=== PATIENT | male | born 1975 | race Caucasian/White ===

== ENCOUNTER 2017-01-08 11:00 | Emergency (ER) | payer MEDICAID ==
[~2017-01-08] VITALS: Ht 175.3 cm; Wt 95.0 kg
[2017-01-08 11:01] VITALS: BP 146/95; PULSE 68; RESP 18; TEMP 97.9; O2SAT 98
[2017-01-08] MEDS ORDERED: METO50TA PO (11:19)
[2017-01-08] MEDS ORDERED: SODIUM CHLORIDE 0.9% FLUSH 10 ML FLUSH IVF PRN (11:45)
[2017-01-08 12:20] VITALS: RESP 17; O2SAT 96
--- NOTE | 2017-01-08 12:20 | RADRPT ---
EXAM DATE/TIME: 01/08/2017 12:00 [facility] COMPARISON: No previous studies available for comparison. INDICATIONS : Increasing dizzy spells for the last year. RADIATION DOSE: 56.37 CTDIvol (mGy) MEDICAL HISTORY : Hypertension. SURGICAL HISTORY : Hand surgery ENCOUNTER: Initial ACUITY: 1 yr PAIN SCALE: 0/10 LOCATION: cranial TECHNIQUE: Multiple contiguous axial images were obtained of the head. Using automated exposure control and adj ustment of the mA and/or kV according to patient size, radiation dose was kept as low as reasonably a chievable to obtain optimal diagnostic quality images. FINDINGS: CEREBRUM: The ventricles are normal for age. No evidence of midline shift, mass lesion, hemorrhage or acute in farction. No extra-axial fluid collections are seen. POSTERIOR FOSSA: The cerebellum and brainstem are intact. The 4th ventricle is midline. The cerebellopontine angle i s unremarkable. EXTRACRANIAL: The visualized portion of the orbits is intact. SKULL: The calvaria is intact. No evidence of skull fracture. CONCLUSION: No acute intracranial disease. Grzegorz Amezcua MD on January 08, 2017 at 12:17 Board Certified Radiologist. This report was verified electronically.
--- NOTE | 2017-01-08 12:22 | RADRPT ---
EXAM DATE/TIME: 01/08/2017 11:40 [facility] COMPARISON: No previous studies available for comparison. INDICATIONS : Syncope, dizziness. MEDICAL HISTORY : None. SURGICAL HISTORY : None. ENCOUNTER: Initial ACUITY: 1 day PAIN SCORE: 0/10 LOCATION: Left chest FINDINGS: Single AP view of the chest. The lungs are clear. Cardiomediastinal silhouette within normal limits. No evidence of pleural effusion or pneumothorax. CONCLUSION: No acute cardiopulmonary disease identified. Jose David Wilkins MD on January 08, 2017 at 12:19 Board Certified Radiologist. This report was verified electronically.
[2017-01-08 12:32] LABS: AUTOMATED NEUTROPHIL # 9.7 TH/MM3 (1.8-7.7); BASOPHIL # 0.1 TH/MM3 (0-0.2); BASOPHIL % 0.5 % (0.0-2.0); EOSINOPHIL % 0.2 % (0.0-4.0); HEMATOCRIT 47.3 % (39.0-51.0); HEMO FLAGS DIFF FINAL; LYMPH % 11.7 % (9.0-44.0); LYMPHOCYTE # 1.4 TH/MM3 (1.0-4.8); MEAN CELL VOLUME 86.5 FL (80.0-100.0); MEAN CORPUSCULAR HGB CONC 33.6 % (32.0-36.0); MONO % 3.9 % (0.0-8.0); NEUT % 83.7 % (16.0-70.0); PLATELET COUNT 190 TH/MM3 (150-450); RED BLOOD COUNT 5.47 MIL/MM3 (4.50-5.90); RED CELL DISTRIBUTION WIDTH 13.8 % (11.6-17.2); WHITE BLOOD COUNT 11.6 TH/MM3 (4.0-11.0)
[2017-01-08] MEDS ORDERED: SODIUM CHLOR 0.9% 1000 ML INJ 1,000 ML IV ONE (12:45)
[2017-01-08 12:55] LABS: ANION GAP 6 MEQ/L (5-15); BICARBONATE 28.9 MEQ/L (21.0-32.0); BLOOD UREA NITROGEN 10 MG/DL (7-18); CHLORIDE 103 MEQ/L (98-107); GLOMERULAR FILTRATION RATE 64 ML/MIN (>89); POTASSIUM 4.5 MEQ/L (3.5-5.1); SODIUM (NA) 138 MEQ/L (136-145)
[2017-01-08 14:11] VITALS: BP 138/97; PULSE 74; RESP 12; O2SAT 98
--- NOTE | 2017-01-08 15:06 | PD ---
HPI Chief Complaint: Dizziness Time Seen by Provider: 11:16 Travel History International Travel<30 days: No Contact w/Intl Traveler<30days: No Traveled to known affect area: No History of Present Illness HPI 41-year-old male came to the emergency room with history of dizziness which as per his description is really lightheadedness. As he gets these episodes on and off and has been going on for almost a year now. He has been worked up from cardiac standpoint and was told that these are related to PVCs. He has been on metoprolol for past 3 months. However he continues to get these episodes. It's getting more frequent now. The one that happened today while he was driving to work was the worse up until now. Says he got really lightheaded and started feeling nauseous. 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 It got little less but continued and he managed to drive somehow to work. When he went to his office his coworkers told him that he looked very pale. He called his to come and pick him up. He is at that point the dizziness had subsided. His decided to bring him to the emergency room and on his way to the ER it started again. Patient says currently the feeling has subsided again. His vital signs are relatively stable. He otherwise does not look to be in any distress. [facility] Past Medical History Narrative Medical List of his past medical, surgical, social and family history was reviewed from the nursing note. Heart Rhythm Problems: Yes (PVC) Hypertension: Yes Influenza Vaccination: No Past Surgical History Other Surgery: Yes (left hand surgery) Social History Alcohol Use: Yes (occasionally) Tobacco Use: No Substance Use: No Allergies-Medications (Allergen,Severity, Reaction): Coded Allergies: No Known Allergies (Unverified , 01/08/17) Comments No known drug allergies. Reported Meds & Prescriptions Reported Meds & Active Scripts Active Reported Metoprolol Tartrate 50 Mg Tab 50 Mg PO BID Narrative Medication List of his home medications reviewed from the nursing note. Review of Systems Except as stated in HPI: all other systems reviewed are Neg Physical Exam Narrative GENERAL: Awake, alert, anxious, no obvious distress SKIN: Focused skin assessment warm/dry. HEAD: Atraumatic. Normocephalic. EYES: Pupils equal and round. No scleral icterus. No injection or drainage. ENT: No nasal bleeding or discharge. Mucous membranes pink and moist. NECK: Trachea midline. No JVD. CARDIOVASCULAR: Regular rate and rhythm. No murmur appreciated. RESPIRATORY: No accessory muscle use. Clear to auscultation. Breath sounds equal bilaterally. GASTROINTESTINAL: Abdomen soft, non-tender, nondistended. Hepatic and splenic margins not palpable. MUSCULOSKELETAL: No obvious deformities. No clubbing. No cyanosis. No edema. NEUROLOGICAL: Awake and alert. No obvious cranial nerve deficits. Motor grossly within normal limits. Normal speech. PSYCHIATRIC: Appropriate mood and affect; insight and judgment normal. Data Data Last Documented VS Vital Signs Date Time Temp Pulse Resp B/P Pulse Ox O2 Delivery O2 Flow Rate FiO2 01/08/17 14:11 74 12 138/97 98 01/08/17 12:20 Room Air 01/08/17 11:01 97.9 Orders Electrocardiogram (01/08/17 11:40) Complete Blood Count With Diff (01/08/17 11:40) Basic Metabolic Panel (Bmp) (01/08/17 11:40) Troponin I (01/08/17 11:40) Ct Brain W/O Iv Contrast(Rout) (01/08/17 11:40) Chest, Single Ap (01/08/17 11:40) Ecg Monitoring (01/08/17 11:40) Iv Access Insert/Monitor (01/08/17 11:40) Oximetry (01/08/17 11:40) Sodium Chloride 0.9% Flush (Ns Flush) (01/08/17 11:45) Mri Brain W&W/O Contrast (01/08/17 ) Mra Brain W/O Contrast (Cow) (01/08/17 ) Sodium Chlor 0.9% 1000 Ml Inj (Ns 1000 M (01/08/17 12:45) Gadodiamide Pf Inj (Omniscan Pf Inj) (01/08/17 16:14) Labs Laboratory Tests Test 01/08/17 12:15 White Blood Count 11.6 TH/MM3 Red Blood Count 5.47 MIL/MM3 Hemoglobin 15.9 GM/DL Hematocrit 47.3 % Mean Corpuscular Volume 86.5 FL Mean Corpuscular Hemoglobin 29.0 PG Mean Corpuscular Hemoglobin 33.6 % Concent Red Cell Distribution Width 13.8 % Platelet Count 190 TH/MM3 Mean Platelet Volume 8.4 FL Neutrophils (%) (Auto) 83.7 % Lymphocytes (%) (Auto) 11.7 % Monocytes (%) (Auto) 3.9 % Eosinophils (%) (Auto) 0.2 % Basophils (%) (Auto) 0.5 % Neutrophils # (Auto) 9.7 TH/MM3 Lymphocytes # (Auto) 1.4 TH/MM3 Monocytes # (Auto) 0.5 TH/MM3 Eosinophils # (Auto) 0.0 TH/MM3 Basophils # (Auto) 0.1 TH/MM3 CBC Comment DIFF FINAL Differential Comment Sodium Level 138 MEQ/L Potassium Level 4.5 MEQ/L Chloride Level 103 MEQ/L Carbon Dioxide Level 28.9 MEQ/L Anion Gap 6 MEQ/L Blood Urea Nitrogen 10 MG/DL Creatinine 1.23 MG/DL Estimat Glomerular Filtration 64 ML/MIN Rate Random Glucose 114 MG/DL Calcium Level 9.3 MG/DL Troponin I LESS THAN 0.02 NG/ML MDM Medical Decision Making Medical Screen Exam Complete: Yes Emergency Medical Condition: Yes Medical Record Reviewed: Yes Interpretation(s) Twelve-lead EKG was reviewed by me. Normal sinus rhythm, normal axis, multiple PVCs, nonspecific ST-T wave changes. Heart rate of 71 bpm. Differential Diagnosis Cardiac arrhythmia, seizures, electrolyte abnormality, TIA Narrative Course 3:05 PM blood test results and CAT scan of the head is back and within normal limit. Currently awaiting for the MRI. He assessed him a little while ago and patient said he has had few other very brief episodes lasting for a few seconds. Nothing was caught on the cardiac catheterization technician as per the nurse. 4:31 PM the MRI report is back and within normal limit. I'll discharge the patient home at this point with instructions. Procedures EKG Prior to Arrival: No Diagnosis Primary Impression: Near syncope Additional Impression: Symptomatic PVCs Referrals: Primary Care Physician 2 days Departure Forms: Tests/Procedures, Work Release Enter return to work date: January 11, 2017 Additional Instructions: Please return to the ER if the condition worsens or any other new concerns. Please follow-up with your primary care. You primary care should refer you to a sole leather cutting machine operator. He should not be driving until you get clearance from the sole leather cutting machine operator. Stay away from coffee, caffeinated beverages, alcohol, cigarettes or any [id number] sinus, cold medications. Med/Other Pt SpecificInfo: No Change to Meds Disposition: 01 DISCHARGE HOME Condition: Stable Dimitry Valera MD January 08, 2017 15:06
[2017-01-08] MEDS ORDERED: GADODIAMIDE PF 287 MG/ML 20 ML VIAL (for RAD MRI) IV ONE (16:14)
--- NOTE | 2017-01-08 16:25 | RADRPT ---
EXAM DATE/TIME: 01/08/2017 15:28 [facility] COMPARISON: No previous studies available for comparison. INDICATIONS : Dizziness. CONTRAST: 19 cc Omniscan (gadodiamide) IV MEDICAL HISTORY : Hypertension. PVC. SURGICAL HISTORY : Left hand. ENCOUNTER: Subsequent ACUITY: 1 day PAIN SCORE: 0/10 LOCATION: cranial TECHNIQUE: Multiplanar, multisequence MRI of the brain was performed both prior to and following the administrat ion of paramagnetic contrast. FINDINGS: CEREBRUM: The ventricles are normal for age. No evidence of midline shift, mass lesion, hemorrhage or acute in farction. No extraaxial fluid collections are seen. The pituitary gland and suprasellar cistern are normal in configuration. WHITE MATTER: No significant signal abnormalities are seen in the white matter. POSTERIOR FOSSA: The cerebellum and brainstem are intact. The 4th ventricle is midline. The cerebellopontine angle is unremarkable. The cerebellar tonsils are normal in position. DIFFUSION IMAGING: No focal areas of restricted diffusion are seen. No evidence of acute infarction. EXTRACRANIAL: The visualized portions of the orbits and paranasal sinuses are unremarkable. POST-CONTRAST: No abnormal areas of parenchymal or dural enhancement. No evidence of blood-brain barrier breakdown. CONCLUSION: Normal examination. Gustavo Gao MD on January 08, 2017 at 16:21 Board Certified Radiologist. This report was verified electronically.
--- NOTE | 2017-01-08 16:26 | RADRPT ---
EXAM DATE/TIME: 01/08/2017 15:28 [facility] COMPARISON: No previous studies available for comparison. INDICATIONS : Dizziness. MEDICAL HISTORY : Hypertension. PVC. SURGICAL HISTORY : Left hand. ENCOUNTER: Subsequent ACUITY: 1 day PAIN SCORE: 0/10 LOCATION: cranial Please note a normal MRA of the brain does not entirely exclude the possibility of a small aneurysm, nor the possibility of distal intracranial vessel disease. TECHNIQUE: 3D time of flight MRA was performed. Source images, multiplanar STS MIP, and 3D volume MIP reconstru ctions were reviewed. FINDINGS: There is excellent visualization of the major intracranial arteries out to the second-order branch ve ssels. There is no evidence for aneurysm, vessel truncation or stenosis, and no evidence for vascula r malformation. CONCLUSION: Normal examination. Gustavo Gao MD on January 08, 2017 at 16:23 Board Certified Radiologist. This report was verified electronically.
--- NOTE | 2017-01-09 06:17 | EKG ---
Date Performed: 01/08/2017 Time Performed: 12:28:42 PTAGE: 41 years EKG: Sinus rhythm WITH FREQUENT VENTRICULAR PREMATURE COMPLEXES ABNORMAL RHYTHM ECG NO PREVIOUS TRACING DOCTOR: Chun Tapia Interpretating Date/Time 01/09/2017 06:16:00
== END 2017-01-08 16:59 | disposition home or self-care (01) ==
LOC: NEPD 11:00
DX: R55 Syncope and collapse (principal); I10 Essential (primary) hypertension; I49.3 Ventricular premature depolarization
CPT/HCPCS: 70450; 70544; 70553; 71010; 80048; 84484; 85025; 93005; 96360; 96361; 99284; A9579; J7030